=== PATIENT | male | born 1955 | race Two or more races ===

== ENCOUNTER 2023-03-05 13:32 | Emergency (ER) | payer MEDICARE, MEDICAID ==
[~2023-03-05] VITALS: Ht 165.1 cm; Wt 92.8 kg
[~2023-03-05 13:32] MED LIST: BUSP10TA23 PO; QUET100T PO; QUET200T PO; TRAZ-252 PO
[2023-03-05 13:55] VITALS: TEMP 98.1
[2023-03-05] MEDS ORDERED: LOSA-382 PO (14:07)
[2023-03-05] MEDS ORDERED: ASPI-1450 PO (14:07)
[2023-03-05] MEDS ORDERED: PROP20TA96 PO (14:07)
[2023-03-05] MEDS ORDERED: BACL10TA PO (14:07)
[2023-03-05] MEDS ORDERED: CLON0.5T4 PO (14:07)
[2023-03-05] MEDS ORDERED: SENN-277 PO (14:07)
[2023-03-05] MEDS ORDERED: ATOR40TA71 PO (14:07)
[2023-03-05] MEDS ORDERED: OMEP20CA12 PO (14:07)
[2023-03-05] MEDS ORDERED: HydrOXYzine PAMOATE 50 MG CAPSULE PO ONE (14:30)
[2023-03-05] MEDS ORDERED: ACETAMINOPHEN 500 MG TABLET PO ONE (14:30)
[2023-03-05 16:13] VITALS: BP 125/81; PULSE 88; RESP 16
== END 2023-03-05 16:15 | disposition home or self-care (01) ==
LOC: EMS 13:57
DX: S09.90XA Unspecified injury of head, initial encounter (principal); F41.9 Anxiety disorder, unspecified; F32.A Depression, unspecified; Z91.013 Allergy to seafood; Z91.012 Allergy to eggs; Z88.8 Allergy status to other drugs, medicaments and biological substances; W01.0XXA Fall on same level from slipping, tripping and stumbling without subsequent striking against object, initial encounter; Y93.89 Activity, other specified; Y92.89 Other specified places as the place of occurrence of the external cause; Y99.8 Other external cause status
CPT/HCPCS: 70450; 99284

== ENCOUNTER 2023-03-15 14:58 | Emergency (ER) | payer MEDICARE, MEDICAID ==
[~2023-03-15] VITALS: Ht 167.6 cm; Wt 88.6 kg
[~2023-03-15 14:58] MED LIST changes: +ASPI-1450 PO; +ASPI81 PO; +ATOR40TA71 PO; +BACL10TA PO; +CLON0.5T4 PO; +ESCI-8 PO; +LOSA-382 PO; +OMEP20CA12 PO; +PROP20TA96 PO; +QUET100T34 PO; +QUET300T19 PO; +SENN-277 PO
[2023-03-15 15:29] VITALS: TEMP 98.1
[2023-03-15] MEDS ORDERED: ACETAMINOPHEN 500 MG TABLET PO ONE (16:00)
[2023-03-15] MEDS ORDERED: BACLOFEN 10 MG TABLET PO ONE (16:00)
[2023-03-15] MEDS ORDERED: ClonazePAM 1 MG TABLET PO ONE (16:00)
[2023-03-15] MEDS ORDERED: IBUPROFEN 600 MG TABLET PO ONE (16:00)
[2023-03-15 16:18] LABS: COVID AG,FIA SOURCE NASAL SWAB
[2023-03-15 16:21] LABS: BASOPHILS % (AUTO) 0.6 % (0.0-2.0); EOSINOPHILS % (AUTO) 3.4 % (1.0-6.0); HEMATOCRIT 40.7 % (41-53); HEMOGLOBIN 13.6 g/dL (13.5-17.5); LYMPHOCYTES # (AUTO) 2.5 K/uL (1.0-4.8); LYMPHOCYTES % (AUTO) 31.7 % (22.0-44.0); MEAN CORPUSCULAR HEMOGLOBIN 29.4 pg (26.0-34.0); MEAN CORPUSCULAR HGB CONC 33.4 G/dL (31.0-37.0); MEAN CORPUSCULAR VOLUME 88 fL (80-100); MONOCYTES # (AUTO) 0.7 K/uL (0.1-1.0); MONOCYTES % (AUTO) 8.7 % (2.0-9.0); NEUTROPHILS # (AUTO) 4.4 K/uL (1.8-7.7); NEUTROPHILS % (AUTO) 55.6 % (40.0-70.0); PLATELET COUNT (AUTO) 184 K/uL (150-450); RED BLOOD CELL COUNT(AUTO) 4.62 MIL/uL (4.50-5.90); RED CELL DISTRIBUTION WIDTH 16.4 % (11.5-14.5); WHITE BLOOD COUNT (AUTO) 7.8 K/uL (4.5-11.0)
[2023-03-15 16:28] LABS: ANION GAP 4 mmol/L (8-16); CALCIUM, TOTAL 9.1 mg/dL (8.8-10.5); CARBON DIOXIDE 30 mmol/L (22-29); CHLORIDE 103 mmol/L (98-107); CREATININE 1.08 mg/dL (0.60-1.30); GLOMERULAR FILTR. RATE CALC > 60 mL/min (>60); GLUCOSE,RANDOM 101 mg/dL (70-110); POTASSIUM 4.3 mmol/L (3.5-5.1); SODIUM SERUM 137 mmol/L (136-145); UREA NITROGEN, BLOOD 26 mg/dL (7-18)
[2023-03-15 16:33] LABS: ALANINE AMINOTRANSFERASE 13 U/L (12-78); ALBUMIN 3.8 g/dL (3.4-5.0); ALKALINE PHOSPHATASE 76 U/L (46-116); ASPARTATE AMINOTRANSFERASE 13 U/L (15-37); BILIRUBIN,TOTAL 0.4 mg/dL (0.1-1.0); TOTAL PROTEIN, SERUM 7.6 g/dL (6.4-8.2)
[2023-03-15 16:35] LABS: TROPONIN I-HIGH SENSITIVITY 7 ng/L (<76)
[2023-03-15 16:38] LABS: SARS-COV2 (COVID) ANTIGEN,FIA Negative (Negative)
[2023-03-15] MEDS ORDERED: ClonazePAM 0.5 MG TABLET PO ONE (16:45)
[2023-03-15 17:35] VITALS: BP 112/84; PULSE 74; RESP 18
[2023-03-15] MEDS ORDERED: BACL10TA PO (18:58)
== END 2023-03-15 19:36 | disposition home or self-care (01) ==
LOC: EMS 14:58
DX: F25.1 Schizoaffective disorder, depressive type (principal); R07.89 Other chest pain; Z91.013 Allergy to seafood; Z91.012 Allergy to eggs; Z88.8 Allergy status to other drugs, medicaments and biological substances; Z91.018 Allergy to other foods; Z20.822 Contact with and (suspected) exposure to COVID-19
CPT/HCPCS: 71045; 80053; 84484; 85025; 93005; 99285; 36415-L1; 36415-TC